=== PATIENT | male | born 1985 | race Caucasian/White ===

== ENCOUNTER 2017-06-24 17:12 | Emergency (ER) | payer MEDICAID ==
[~2017-06-24] VITALS: Ht 165.1 cm; Wt 70.3 kg
[~2017-06-24 17:12] MED LIST: CARB200T4 PO
[2017-06-24 17:42] VITALS: BP 142/80
--- NOTE | 2017-06-24 19:10 | NUR ---
PT TAKEN TO OF
--- NOTE | 2017-06-24 19:25 | NUR ---
Patient being evaluated by DR. MITTAL at bedside.
--- NOTE | 2017-06-24 19:45 | NUR ---
32Y/M PT PRESENTS TO ER W/C/O LEFT WRIST PAIN X3 MONTHS. PT DENIES ANY FALL OR INJURY. AAO X4, AMBULATORY WITH STEADY GAIT. NO APPARENT INJURY. C/O PAIN 12/13. VSS, ER MADE AWARE OF PT. STATUS.
--- NOTE | 2017-06-24 20:15 | NUR ---
Patient discharged with v/s stable. Written and verbal after care instructions given and explained. Patient alert, oriented and verbalized understanding of instructions. Ambulatory with steady gait. All questions addressed prior to discharge. ID band removed. Patient advised to follow up with PMD. Rx of NAPROSYN 500 MG given. Patient educated on indication of medication including possible reaction and side effects. Opportunity to ask questions provided and answered.
--- NOTE | 2017-06-24 21:02 | NUR ---
Note undone in EDM - 06/24/17 at 2103 by [facility] 32Y/M PT PRESENTS TO ER W/C/O LEFT WRIST PAIN X3 MONTHS. PT DENIES ANY FALL OR INJURY. AAO X4, AMBULATORY WITH STEADY GAIT. NO APPARENT INJURY. C/O PAIN 12/13. VSS, ER MADE AWARE OF PT. STATUS.
[2017-06-24 21:04] VITALS: BP 133/91
== END 2017-06-24 20:15 | disposition home or self-care (01) ==
LOC: MED 17:12
DX: S63.502A Unspecified sprain of left wrist, initial encounter (principal); Z79.899 Other long term (current) drug therapy; W01.0XXA Fall on same level from slipping, tripping and stumbling without subsequent striking against object, initial encounter; Y93.89 Activity, other specified; Y92.89 Other specified places as the place of occurrence of the external cause; Y99.8 Other external cause status
CPT/HCPCS: 73090; 99284

== ENCOUNTER 2021-10-09 17:45 | Emergency (ER) | payer MEDICAID, OTHER ==
[~2021-10-09] VITALS: Ht 162.6 cm; Wt 72.6 kg
[2021-10-09 18:02] VITALS: BP 143/94
[2021-10-09] MEDS ORDERED: RECT1DEV RC (19:13)
[2021-10-09] MEDS ORDERED: LIDO4CRE18 TP (19:30)
--- NOTE | 2021-10-09 19:38 | NUR ---
Patient discharged with v/s stable. Written and verbal after care instructions given and explained. Patient verbalized understanding. Ambulatory with steady gait. All questions addressed prior to discharge. Advised to follow up with PMD.
== END 2021-10-09 19:38 | disposition home or self-care (01) ==
LOC: MED 17:45
DX: K60.2 Anal fissure, unspecified (principal)
CPT/HCPCS: 99282